=== PATIENT | female | born 1990 | race Caucasian/White ===

== ENCOUNTER 2021-10-06 12:00 | Outpatient (CLI) | payer BC ==
--- NOTE | 2021-10-06 14:32 | US ---
EXAMINATION TYPE: US OB BPP wo non-stress DATE OF EXAM: 10/06/2021 COMPARISON: NONE CLINICAL HISTORY: decreased movement. EXAM PERFORMED: Transabdominal (TA) BPP PARAMETERS: PRESENTATION: Vertex LIE: Longitudinal?? HEART RATE: 128 bpm RHYTHM: Normal MAO: 8.37 DIAPHRAGM IMAGED: Yes BPP SCORIN. Breathin (1 episode of breathing of 30 second duration in 30 minutes of scanning time) 2. Movement: 2 (at least 3 discrete body movements in 30 minutes) 3. Tone: 2 (1 episode of active flexion/extension of limb) 4. MAO: 2 (MAO index > 5cm) TOTAL SCORE: 8 / 8
--- NOTE | 2021-10-06 14:34 | US ---
EXAMINATION TYPE: US OB >= 14 wk fetus DATE OF EXAM: 10/06/2021 COMPARISON: None CLINICAL HISTORY: efw, mao Decreased movements TECHNIQUE: Transabdominal (TA) GESTATIONAL AGE / DATING Physician Established: (33 weeks/0 days) EDC: 11/24/2021 Dates by First Scan: No previous this is first scan here Dates by Current Scan: (32 weeks/3 days) EDC: 11/28/2021 Beta HCG (if available): Not available at this time SURVEY IUP: Single PLACENTA: Anterior PREVIA: No Previa MAO: 8.37 cm Normal CERVICAL LENGTH (transabdominal: norm > 3.0cm): 3.15 cm BIOMETRY PRESENTATION: Vertex LIE: Longitudinal BPD: 8.01 cm 32 weeks / 2 days HC: 29.66 cm 32 weeks / 6 days AC: 27.69 cm 31 weeks / 6 days FL: 6.22 cm 32 weeks / 2 days ESTIMATED WEIGHT IN GRAMS: 1889 grams ESTIMATED WEIGHT IN LBS/OZ: 4 lbs. 3 oz. HC/AC: 1.07 Normal FL/AC: 22% Normal HEART RATE: 128 bpm RHYTHM: Normal IMPRESSION: Viable 32 weeks 3 days with a rudimentary 28 bpm. Estimated weight 4 lbs. 3 oz. MAO m easures approximately 8.37 cm. Correlate clinically.
[2021-10-06 14:51] VITALS: BP 113/60; PULSE 81; RESP 16; TEMP 98.7
--- NOTE | 2021-10-07 17:04 | P.HPOB ---
History of Present Illness H&P Date: 10/07/21 Chief Complaint: IUP @ 33 1/7 weeks, prior covid infection decreased FM 31 yo at 33 1/7 weeks, EDC 3/ based on LMP c/w 9 week US, that presents for 24 hour observation. she was seen yesterday for decreased FM, BPP 8/8 on OB. she subsequently saw me for MAO/BPP in the office, MAO 6.47 today, efw 9%ile 4-0 nml dopplers on US. she denies any signs of ROM. she did have covid 09/23. she states she had cough and congestion. she did receive monoclonal antibodies nor has she been vaccinated against COVID 19 she is feeling better but over the last few days FM has been decreased. prior to this was uncomplicated. [facility] was consulted on this case given the findings with recommendations of observation, betamethason q 12 hours, and BPP in the am. continuous monitoring over night as well Review of Systems Constitutional: Denies chills, Denies fatigue, Denies fever Ears, nose, mouth and throat: Denies headache Cardiovascular: Denies edema Respiratory: Denies dyspnea Gastrointestinal: Denies nausea, Denies vomiting Genitourinary: Reports Past Medical History History of Any Multi-Drug Resistant Organisms: None Reported Smoking Status: Never smoker Medications and Allergies Home Medications Medication Instructions Recorded Confirmed Type [place]-3 Fatty Acids [[place]-3] 1 tablet PO DAILY 10/06/21 10/06/21 History Pnv,Calcium 72/Iron/Folic Acid 1 tablet PO DAILY 10/06/21 10/06/21 History [ Plus Tablet] Allergies Allergy/AdvReac Type Severity Reaction Status Date / Time No Known Allergies Allergy Verified 10/06/21 12:17 Exam Osteopathic Statement: *. No significant issues noted on an osteopathic structural exam other than those noted in the History and Physical/Consult. targeted physical exam is done on this date, in general this is a well nourished well developed female in no actue distress, breathing is non- labored, heart has a regular rate and rhythm, abdomen is gravid. cervical exam is deferred. BPP 6/8 and NST with cat 2 tracing, positive accelerations. she did have a large FM while I was speaking to her. (she was only on a short time before I spoke with M and sent her to OB for observation.) Assessment and Plan (1) 33 weeks gestation of Status: Acute Code(s): Z3A.33 - 33 WEEKS GESTATION OF SNOMED Code(s): 95482670 (2) COVID-19 virus infection Status: Acute Code(s): U07.1 - COVID-19 SNOMED Code(s): 637055811 (3) Decreased movement Status: Acute Code(s): O36.8190 - DECREASED MOVEMENTS, UNSP TRIMESTER, UNSP SNOMED Code(s): 598727774 Plan: 31 yo at 33 1/7 that is admitted for observation overnight, betamethasone now and repeat in 12 hours. IVF @ 125cc/hr. she is to be on continuous monitoring, repeat BPP in the am. plan is discussed with pt and all questions answered. she does state the understanding for continuous monitoring, and plan for repeat BPP.
--- NOTE | 2021-10-16 09:39 | P.MSEPDOC ---
Presenting Problems - Arrival Data Date of Arrival on Unit: 10/06/21 Time of Arrival on Unit: 11:45 Mode of Transport: Ambulatory - Complaint OB-Reason for Admission/Chief Complaint: Decreased Movement Medical History - Information : 1 Para: 0 Term: 0 : 0 Abortions: Spontaneous or Elective: 0 Number of Living Children: 0 - Gestational Age Gestational Age by DASH (wks/days): 33 Weeks and 0 Days Review of Systems - Review of Systems Constitutional: No problems Breast: No problems ENT: No problems Cardiovascular: No problems Respiratory: No problems Gastrointestinal: No problems Genitourinary: No problems Musculoskeletal: No problems Neurological: No problems Skin: No problems Vital Signs - Temperature Temperature: 98.7 F Temperature Source: Oral - Pulse Right Brachial Pulse Rate: 81 Pulse Assessment Method: Automatic Cuff - Respirations Respiratory Rate: 16 Oxygen Delivery Method: Room Air - Blood Pressure Right Arm Blood Pressure: 113/60 Blood Pressure Mean: 77 Blood Pressure Source: Automatic Cuff Medical Screen Scoring - Assessment - Baby A Baseline FHR: 120 Heart Rate - NICHD Category: Category I (Normal) NST: Reactive Physician Notification - Physician Notified Physician Notified Date: 10/06/21 Physician Notified Time: 12:44 Physician: Thi Medina New Order Received: Yes - Notification Comment Comment: orders bpp and follow up office for repeat us for josseline Maternal Triage Index - Maternal Triage Index Presenting for scheduled procedure w/no complaint: No - Stat/Priority 1 Stat Priority 1: No - Urgent/Priority 2 Urgent Priority 2: Yes Provider Notified: Thi Medina Provider Notified Time: 12:44 Criteria Met for Priority 2: pt reports dfm, bpp and nst complete, follow up in office tomorrow - Prompt/Priority 3 Prompt Priority 3: No - Non-Urgent/Priority 4 Non-Urgent Priority 4: No - Scheduled/Requesting Priority 5 Scheduled/Requesting Priority 5: No Disposition - Disposition OB Disposition: Discharge to home Discharge Date: 10/06/21 Discharge Time: 14:30 I agree with the RN Medical Screening Exam: Yes Case reviewed; plan agreed upon as documented in EMR&OBIX.: Yes Diagnosis: DECREASED MOVEMENTS, THIRD TRIMESTER, FETUS 1
== END 2021-10-06 14:30 | disposition home or self-care (01) ==
LOC: FBPOP 12:00 → 4FBP 10-07 16:50 → UNDOADMOB 10-07 16:50 → UNDODISOB 10-07 17:34
PROVIDERS: ATTEND Obstetrics & Gynecology Obstetrics
DX: O98.513 Other viral diseases complicating pregnancy, third trimester (principal); U07.1 COVID-19; O36.8130 Decreased fetal movements, third trimester, not applicable or unspecified; Z3A.32 32 weeks gestation of pregnancy
CPT/HCPCS: 59025; 76805; 76819; 99213

== ENCOUNTER 2021-10-07 17:32 | Inpatient (IN) | payer BC ==
[2021-10-07] MEDS: LACTATED RINGERS 1,000 ML IV SCH ×2 (17:32→19:49)
[2021-10-07] MEDS ORDERED: ACETAMINOPHEN TAB 500 MG TAB PO PRN (18:08)
[2021-10-07] MEDS: BETAMET ACET-BETAMETH SOD PHOS 6 MG/ML MDV IM SCH (18:16)
[2021-10-07 18:28] VITALS: BP 118/77; PULSE 66; RESP 16; TEMP 98.3
[2021-10-07 19:32] LABS: Basophils % (A) 1 %; Eosinophils # (A) 0.1 k/uL (0-0.7); Eosinophils % (A) 1 %; HCT 38.1 % (34.0-46.0); Lymphocytes # (A) 2.4 k/uL (1.0-4.8); Lymphocytes % (A) 26 %; MCH 31.4 pg (25.0-35.0); MCV 92.5 fL (80.0-100.0); Mean Platelet Volume 7.4; Monocytes # (A) 0.3 k/uL (0-1.0); Monocytes % (A) 4 %; Neutrophils # (A) 6.4 k/uL (1.3-7.7); Neutrophils % (A) 68 %; Platelet Count 483 k/uL (150-450); RBC 4.12 m/uL (3.80-5.40); RDW 12.5 % (11.5-15.5); WBC 9.4 k/uL (3.8-10.6)
[2021-10-08] MEDS: LACTATED RINGERS 1,000 ML IV SCH ×2 (04:04→06:34)
[2021-10-08] MEDS: BETAMET ACET-BETAMETH SOD PHOS 6 MG/ML MDV IM SCH (04:55)
[2021-10-08] MEDS ORDERED: CITRIC ACID-SODIUM CITRATE 15 ML CUP PO ONE (06:26)
--- NOTE | 2021-10-08 07:20 | P.PN ---
Progress Note - Text Progress Note Date: 10/08/21 31-year-old 1 para 0 at 33 weeks and 2/7 that has been observed overnight secondary to a biophysical profile of 6 out of 8. Patient has a history of COVID-19, diagnosed on 09/23, symptoms beginning on 09/18. Patient did not receive antibodies or vaccination. Patient was on continuous monitoring overnight, she subsequently has a few spontaneous decelerations resolved with position change and IV fluid bolus. Early this morning she had a deceleration to the 80s for multiple minutes, obstetricians were called. Initial emergency section was called, but status improved after a 500 mL bolus of LR. She did receive her second dose of steroids and position changes were initiated. status improved. Biophysical profile is currently pending this morning. Plan to await biophysical profile and anticipate transfer to tertiary care center.
--- NOTE | 2021-10-08 07:25 | P.HPOB ---
History of Present Illness H&P Date: 10/08/21 (Prior H&P was on the wrong account) Chief Complaint: IUP at 33 weeks, history of covert, decreased movement This is a 31-year-old 1 para 0 at 33 weeks gestation that presented to the office for follow-up on a triage visit. Patient was seen on Tuesday in OB triage for complaints of decreased movement. Reassuring heart tones were noted at the time, biophysical profile was noted to be 8 out of 8, MAO of 8.3. Patient was discharged with close follow-up to be seen in the office the next day. Patient was female office on Saturday 10/07. Patient noted movement still decreased from what she states is normal. Her son was performed further decrease in amniotic fluid was noted from 8.3-6.3, biophysical profile was noted to be 6 and 8. MFM was consulted on the phone case was reviewed with recommendations for 24-hour observation, betamethasone on a 12 hour protocol. Repeat biophysical profile was ordered for the morning. Prior to her COVID-19 diagnoses her has been uncomplicated. Review of Systems Constitutional: Reports fatigue, Denies chills, Denies fever Ears, nose, mouth and throat: Denies headache Cardiovascular: Denies leg edema Respiratory: Denies cough, Denies dyspnea Gastrointestinal: Denies constipation, Denies diarrhea, Denies nausea, Denies vomiting Genitourinary: Reports Past Medical History Past Medical History: No Reported History History of Any Multi-Drug Resistant Organisms: None Reported Past Surgical History: No Surgical Hx Reported Past Anesthesia/Blood Transfusion Reactions: No Reported Reaction Past Psychological History: No Psychological Hx Reported Smoking Status: Never smoker Past Alcohol Use History: None Reported Past Drug Use History: None Reported - Past Family History Mother Family Medical History: Cancer Medications and Allergies Home Medications Medication Instructions Recorded Confirmed Type [place]-3 Fatty Acids [[place]-3] 1 tablet PO DAILY 10/06/21 10/07/21 History Pnv,Calcium 72/Iron/Folic Acid 1 tablet PO DAILY 10/06/21 10/07/21 History [ Plus Tablet] Allergies Allergy/AdvReac Type Severity Reaction Status Date / Time No Known Allergies Allergy Verified 10/07/21 18:06 Exam Osteopathic Statement: *. No significant issues noted on an osteopathic structural exam other than those noted in the History and Physical/Consult. Vital Signs Temp Pulse Resp BP Pulse Ox 10/07/21 17:37 98.3 F 66 16 118/77 96 Intake and Output 10/07/21 10/08/21 10/08/21 22:59 06:59 14:59 Other: # Voids 1 1 Weight 77.564 kg Targeted physical exam is performed and state in general this a well-nourished well-developed female in no acute distress, breathing was appreciated to be nonlabored, heart has regular rate and rhythm, abdomen is gravid, cervix was not examined, heart tones were noted to be reassuring on NST. Results Result Diagrams: 10/07/21 18:55 Abnormal Lab Results - Last 24 Hours (Table) 10/07/21 Range/Units 18:55 Plt Count 483 H (150-450) k/uL Assessment and Plan (1) 33 weeks gestation of Current Visit: No Status: Acute Code(s): Z3A.33 - 33 WEEKS GESTATION OF SNOMED Code(s): 76804228 (2) COVID-19 virus infection Current Visit: No Status: Acute Code(s): U07.1 - COVID-19 SNOMED Code(s): 046854305 (3) Decreased movement Current Visit: No Status: Acute Code(s): O36.8190 - DECREASED MOVEMENTS, UNSP TRIMESTER, UNSP SNOMED Code(s): 068741532 Plan: 31-year-old 1 para 0 at 33-2/7 weeks with prior COVID-19 infection, decreased movement complaint. Patient had a biophysical profile of 6 out of 8 with plans for close observation and betamethasone administration. Plan is reviewed with the patient in detail questions are answered and she states understanding. The possibility of transfer to [facility] were discussed with the patient given gestational age. This is a additional copy of a history and physical as the original copy went to a different account number. History and physical initially was dictated on 10/07 prior to her admission.
--- NOTE | 2021-10-08 08:33 | P.DS ---
Providers Date of admission: 10/07/21 17:32 Expected date of discharge: 10/08/21 Attending physician: Thi Medina Primary care physician: Stated None - Discharge Diagnosis(es) (1) 33 weeks gestation of Current Visit: No Status: Acute (2) COVID-19 virus infection Current Visit: No Status: Acute (3) Decreased movement Current Visit: No Status: Acute Hospital Course: 31-year-old 1 para 0 at 33-2/7 weeks that presented to labor and delivery yesterday for observation. Patient had a episode of decreased movement where she presented to the hospital on October 06, category 2 heart tones were appreciated biophysical profile was performed and found to be 8 and 8. Patient of note had an amniotic fluid index of 8.3. Patient was urged to follow-up in the office the next day for repeat MAO, BPP. Patient presented noted movement but still decreased. Biophysical profile noted to be 6 out of 8, amniotic fluid index had decreased to 6.3, estimated weight was 4 pounds, 9th percentile. Normal umbilical Doppler's were appreciated on ultrasound. Patient was admitted overnight to the hospital for continuous monitoring, betamethasone, repeat biophysical. Through the evening patient had noted spontaneous decelerations, resolution of these decelerations were appreciated with position changes and IV fluid bolus. This morning around 5 AM patient had a spontaneous deceleration to the 80s lasting several minutes therefore I was called to evaluate, resolution of heart tones was appreciated with position changes once again. Patient was counseled on possibility of need for transfer secondary to status versus delivery should another spontaneous deceleration happen. Biophysical profile was repeated this morning and found to be 6 out of 8. Patient states she notes movement this morning. MAO this morning of 9. Patient's heart tones have been category 2 for approximately 2 hours at this point, transfer to tertiary care center was initiated. [facility] in [place] was contacted, attending did accept transfer and patient is understanding of need for transfer. All questions are answered to the patient and her satisfaction. Patient Condition at Discharge: Stable Plan - Discharge Summary New Discharge Prescriptions: No Action Pnv,Calcium 72/Iron/Folic Acid [ Plus Tablet] 1 tablet PO DAILY [place]-3 Fatty Acids [[place]-3] 1 tablet PO DAILY Discharge Medication List [place]-3 Fatty Acids [[place]-3] 1 tablet PO DAILY 10/06/21 [History] Pnv,Calcium 72/Iron/Folic Acid [ Plus Tablet] 1 tablet PO DAILY 10/06/21 [History]
--- NOTE | 2021-10-08 09:56 | US ---
PERFORMED: 10/06/2021 EXAMINATION TYPE: US OB limited DATE OF EXAM: 10/08/2021 COMPARISON: 10/06/2021 CLINICAL HISTORY: mao and bpp. Decreased movement EXAM PERFORMED: Transabdominal (TA) BPP PARAMETERS: PRESENTATION: Vertex LIE: Longitudinal?? HEART RATE: 134 bpm RHYTHM: Normal MAO: 9.84 BPP SCORIN. Breathin, Shallow breathing seen not lasting longer than 30 seconds (1 episode of breathing of 30 second duration in 30 minutes of scanning time) 2. Movement: 0 (at least 3 discrete body movements in 30 minutes) 3. Tone: 2 (1 episode of active flexion/extension of limb) 4. MAO: 2 (MAO index > 5cm) TOTAL SCORE: 4 / 8 Impression: 1. No movement was seen within the first 30 minute window, Second tech scanned and movement seen duri ng the 40-45 minute window. There is minimal interval reduction in total score to 4. Correlate clinic ally. 2. MAO measures 9.8 and previously measured 8.37.
[2021-10-08] MEDS ORDERED: ROPIVACAINE 100 MG, fentaNYL (PF). 200 MCG in SODIUM CHLORIDE 0.9% 76 ML EPIDURAL ONE (13:06)
--- NOTE | 2021-10-09 10:00 | US ---
ADDENDUM Addendum: Report called to the patient's nurse 10/08/2021 at 9:40 AM. Addendum Dictated By:Raz Farley MD Addendum Signed By: <Electronically signed by Raz Farley MD in OV> Signed Date/Time: 10/08/21 1006 PERFORMED: 10/06/2021 EXAMINATION TYPE: US OB limited DATE OF EXAM: 10/08/2021 COMPARISON: 10/06/2021 CLINICAL HISTORY: mao and bpp. Decreased movement EXAM PERFORMED: Transabdominal (TA) BPP PARAMETERS: PRESENTATION: Vertex LIE: Longitudinal?? HEART RATE: 134 bpm RHYTHM: Normal MAO: 9.84 BPP SCORIN. Breathin, Shallow breathing seen not lasting longer than 30 seconds (1 episode of breathing of 30 second duration in 30 minutes of scanning time) 2. Movement: 0 (at least 3 discrete body movements in 30 minutes) 3. Tone: 2 (1 episode of active flexion/extension of limb) 4. MAO: 2 (MAO index > 5cm) TOTAL SCORE: 4 / 8 Impression: 1. No movement was seen within the first 30 minute window, Second tech scanned and movement seen during the 40-45 minute window. There is minimal interval reduction in total score to 4. Correlate clinically. 2. MAO measures 9.8 and previously measured 8.37. MTDD
== END 2021-10-08 08:40 | disposition home or self-care (01) | DRG 831 ==
LOC: 4FBP 17:32 → OBSVTOIN 10-08 08:27
PROVIDERS: ADMIT Obstetrics & Gynecology Obstetrics; ATTEND Obstetrics & Gynecology Obstetrics
PROC: BY4FZZZ Ultrasonography of Third Trimester, Single Fetus (ICD-10-PCS; principal; 2021-10-08)
PROC: 4A0HXCZ Measurement of Products of Conception, Cardiac Rate, External Approach (ICD-10-PCS; 2021-10-08)
DX: O36.8130 Decreased fetal movements, third trimester, not applicable or unspecified (principal); U07.1 COVID-19; O98.513 Other viral diseases complicating pregnancy, third trimester; O76 Abnormality in fetal heart rate and rhythm complicating labor and delivery; Z3A.33 33 weeks gestation of pregnancy
CPT/HCPCS: 76815; 76819; 85025; 86850; 86900; 86901